=== PATIENT | male | born 1975 | race Caucasian/White ===

== ENCOUNTER 2018-08-09 14:29 | Inpatient (IN) | payer BC ==
[~2018-08-09] VITALS: Ht 182.9 cm; Wt 108.4 kg
[2018-08-09] MEDS ORDERED: IV NORMAL SALINE 1000ML BAG 1,000 ML IV ONE (16:00)
[2018-08-09 16:14] LABS: BASO % 0 % (0-3); EOS % 1 % (0-3); HEMATOCRIT 50.7 % (39.0-53.0); HEMOGLOBIN 17.4 g/dL (13.0-17.5); LYMPH # 1.5 x10^3/uL (1.0-4.8); LYMPH % 26 % (24-48); MEAN CORPUSCULAR HEMOGLOBIN 30 pg (25-35); MEAN CORPUSCULAR HGB CONC 34 g/dL (31-37); MEAN CORPUSCULAR VOLUME 88 fL (79-100); MONO # 0.3 x10^3/uL (0.0-1.1); MONO % 6 % (0-9); NEUT # 3.9 x10^3uL (1.8-7.7); NEUT % 68 % (31-73); PLATELET COUNT 252 x10^3/uL (140-400); RED BLOOD COUNT 5.79 x10^6/uL (4.30-5.70); RED CELL DISTRIBUTION WIDTH 13.8 % (11.5-14.5); WHITE BLOOD COUNT 5.8 x10^3/uL (4.0-11.0)
--- NOTE | 2018-08-09 16:16 | PHYS DOC ---
Past Medical History Past Medical History: Hypertension Past Surgical History: No Surgical History Additional Information: Nonsmoker Alcohol Use: None Drug Use: None Adult General Chief Complaint Chief Complaint: BLURRED/DOUBLE VISION HPI HPI Patient is a 43 year old male who presents with acute onset diplopia which started at approximately [id number]. Patient states he was awake and driving for about an hour this morning but when he got out of his car he noticed double vision that came on immediately. He states that visual acuity is unaffected in either eye and there is no eye pain, swelling or redness. He feels that something is wrong with his right eye and states that he "cannot move it to look left past midline". Patient denies headache, photophobia, neck pain, vertigo, weakness, dizziness, paresthesias, chest pain or shortness of breath. Denies trauma or eye pain. Reports he does wear contacts. Review of Systems Review of Systems Constitutional: Denies fever or chills [] Eyes: Reports diplopia and inability to adduct right eye. Denies change in visual acuity, redness, or eye pain [] HENT: Denies nasal congestion or sore throat [] Respiratory: Denies cough or shortness of breath [] Cardiovascular: Denies chest pain or palpitations [] GI: Denies abdominal pain, nausea, vomiting, or diarrhea [] Integument: Denies rash or skin lesions [] Neurologic: Denies headache, focal weakness or sensory changes [] Endocrine: Denies temperature intolerance or skin changes. [] Complete review of systems found to be within normal limits, except as documented in this note. Current Medications Current Medications Current Medications Medications (Trade) Dose Ordered Sig/Sp Start Time Stop Time Status Last Admin Dose Admin Fluorescein Sodium (Ful-Taylor) 1 strip 1X ONCE 08/09/18 16:30 08/09/18 16:31 DC 08/09/18 18:13 1 STRIP Info (CONTRAST GIVEN -- Rx MONITORING) 1 each PRN DAILY PRN 08/09/18 16:45 08/11/18 16:44 Iohexol (Omnipaque 350 Mg/ml) 75 ml 1X ONCE 08/09/18 17:00 08/09/18 17:01 DC 08/09/18 16:54 75 ML Sodium Chloride 1,000 ml @ 1,000 mls/hr 1X ONCE 08/09/18 16:00 08/09/18 16:59 DC 08/09/18 16:08 1,000 MLS/HR Tetracaine HCl (Tetracaine) 1 drop 1X ONCE 08/09/18 16:30 08/09/18 16:31 DC Allergies Allergies Allergies Coded Allergies Type Severity Reaction Last Updated Verified codeine Allergy Intermediate 08/09/18 Yes Physical Exam Physical Exam Constitutional: Well developed, well nourished, no acute distress, non-toxic appearance. [] HENT: Normocephalic, atraumatic, bilateral external ears normal, oropharynx moist, no oral exudates, tympanic membranes visualized b/l with good cones of light and no effusion. [] Eyes: PERRLA, Right eye does not adduct past midline. Red reflexes present b/l. No conjunctivitis or uveitis. No erythema surrounding eyelids. No pain on extraocular movements. IOP 17, 18; No fluorescein uptake, no corneal abrasion Neck: Normal range of motion, no tenderness, supple, no stridor. [] Cardiovascular:Heart rate regular rhythm, no murmur [] Lungs & Thorax: Bilateral breath sounds clear to auscultation [] Abdomen: Soft and nontender [] Skin: Warm, dry, no erythema, no rash. [] Extremities: Radial pulses +2 b/l. UE Strength +5 b/l [] Neurologic: Alert and oriented X 3, normal extremity motor function, normal sensory function. Cranial nerve examination revealed no focal deficit aside from inability to adduct right eye. [] Psychologic: Affect normal, judgement normal, mood normal. [] Current Patient Data Vital Signs Vital Signs Date Time Temp Pulse Resp B/P (MAP) Pulse Ox O2 Delivery O2 Flow Rate FiO2 08/09/18 14:36 97.6 62 18 157/95 (115) 100 Room Air 97.6 Lab Values Laboratory Tests Test 08/09/18 16:00 White Blood Count 5.8 x10^3/uL (4.0-11.0) Red Blood Count 5.79 x10^6/uL (4.30-5.70) H Hemoglobin 17.4 g/dL (13.0-17.5) Hematocrit 50.7 % (39.0-53.0) Mean Corpuscular Volume 88 fL (79-100) Mean Corpuscular Hemoglobin 30 pg (25-35) Mean Corpuscular Hemoglobin Concent 34 g/dL (31-37) Red Cell Distribution Width 13.8 % (11.5-14.5) Platelet Count 252 x10^3/uL (140-400) Neutrophils (%) (Auto) 68 % (31-73) Lymphocytes (%) (Auto) 26 % (24-48) Monocytes (%) (Auto) 6 % (0-9) Eosinophils (%) (Auto) 1 % (0-3) Basophils (%) (Auto) 0 % (0-3) Neutrophils # (Auto) 3.9 x10^3uL (1.8-7.7) Lymphocytes # (Auto) 1.5 x10^3/uL (1.0-4.8) Monocytes # (Auto) 0.3 x10^3/uL (0.0-1.1) Eosinophils # (Auto) 0.0 x10^3/uL (0.0-0.7) Basophils # (Auto) 0.0 x10^3/uL (0.0-0.2) Erythrocyte Sedimentation Rate 2 (0-15) Sodium Level 142 mmol/L (136-145) Potassium Level 3.9 mmol/L (3.5-5.1) Chloride Level 103 mmol/L (98-107) Carbon Dioxide Level 30 mmol/L (21-32) Anion Gap 9 (6-14) Blood Urea Nitrogen 14 mg/dL (8-26) Creatinine 1.0 mg/dL (0.7-1.3) Estimated GFR (Cockcroft-Gault) 81.2 BUN/Creatinine Ratio 14 (6-20) Glucose Level 93 mg/dL (70-99) Calcium Level 9.5 mg/dL (8.5-10.1) Magnesium Level 2.3 mg/dL (1.8-2.4) Total Bilirubin 0.9 mg/dL (0.2-1.0) Aspartate Amino Transferase (AST) 24 U/L (15-37) Alanine Aminotransferase (ALT) 54 U/L (16-63) Alkaline Phosphatase 74 U/L (46-116) Creatine Kinase 94 U/L (39-308) Creatine Kinase MB (Mass) 1.1 ng/mL (0.0-3.6) Creatine Kinase MB Relative Index 1.2 % (0-4) Troponin I Quantitative < 0.017 ng/mL (0.000-0.055) C-Reactive Protein, Quantitative 1.5 mg/L (0-3.3) Total Protein 7.4 g/dL (6.4-8.2) Albumin 4.2 g/dL (3.4-5.0) Albumin/Globulin Ratio 1.3 (1.0-1.7) Thyroid Stimulating Hormone (TSH) 0.719 uIU/mL (0.358-3.74) Free Thyroxine 1.19 ng/dL (0.76-1.46) Free Triiodothyronine (T3) pg/mL 3.51 pg/mL (2.18-3.98) Laboratory Tests 08/09/18 16:00 Laboratory Tests 08/09/18 16:00 EKG EKG @1615: Sinus arrhythmia with rate variable between 85 and 62. Normal axis. No Q waves. T wave inversion in V3-V6 and I and aVL. No ST segment elevation or depression.[] Radiology/Procedures Radiology/Procedures PROCEDURE: CT ANGIOGRAPHY HEAD AND NECK CT ANGIOGRAPHY HEAD AND NECK Indication: Right diplopia. Exposure: One or more of the following individualized dose reduction techniques were utilized for this examination: 1. Automated exposure control 2. Adjustment of the mA and/or kV according to patient size 3. Use of iterative reconstruction technique. TECHNIQUE: Standard imaging obtained after intravenous contrast. MIP reconstructions were obtained. Urgent interpretation and reporting was requested to evaluate for large vessel occlusion. Comparison: None are available. Contrast: Intravenous contrast is given. Neck: The carotid arteries are grossly patent bilaterally. Vertebral arteries are patent in the neck bilaterally. Head: Intracranial carotid arteries are grossly patent. Intracranial perfusion appears grossly symmetric. Anterior cerebral arteries are patent. Middle cerebral arteries are patent. Vertebrobasilar arteries are patent. Posterior cerebral arteries are patent. Posterior communicating arteries appear patent bilaterally. No large aneurysm is suggested. Nonvascular findings: Limited due to technique which was protocoled towards arterial evaluation. No obvious midline shift in the brain. Lung apices grossly clear. IMPRESSION: No evidence of large vessel occlusion. Electronically signed by: Zbigniew Cain MD (08/09/2018 5:25 PM) [facility] [] Course & Med Decision Making Course & Med Decision Making Pertinent Labs and Imaging studies reviewed. (See chart for details) Patient is a 43 year old male who presents with acute onset horizontal diplopia and ophthalmoplegia that began immediately at nearly 0800/30 this morning. Patient has no other complaints and his eye has never been painful or swollen th roughout this event. Visual acuity has been spared in both eyes. He is relatively healthy with his only notable past medical history being HTN treated with lisinopril and hydrochlorothiazide. NIHSS 1 due to partial gaze palsy of right eye. CTA of head and neck showed no evidence of large vessel occlusion. Intraocular pressures normal. CBC, CMP, Troponin and CRP unremarkable. Although he was unable to adduct the right eye past midline upon initial evaluation, he experienced moderate improvement while in the ED and regained some motion past midline in the right eye although his diplopia persisted. Aspirin given in ED for cerebrovascular protection. Given negative ESR/CRP and lack of additional symptoms, giant cell temporal arteritis less likely. Acute angle glaucoma unlikely due to lack of eye pain and normal IOP. Symptomatology leaves internuclear ophthalmoplegia as a possibility however symptoms have been immediate with recent improvement and patient has minimal risk factors for cerebrovascular disease. Discussed with patient the benefit of further evaluation as inpatient admission and patient is agreeable. Will admit to Dr. Bravo. Discussed case with Dr. Franco (neurology) who requests thyroid studies to be added. Patient requiring admission for further evaluation and treatment. Discussed with Dr. Bravo (PCP) who is in agreement with admit. Discussed findings and plan with patient, who acknowledges understanding and agreement. Dragon Disclaimer Dragon Disclaimer This electronic medical record was generated, in whole or in part, using a voice recognition dictation system. Departure Departure Impression: Primary Impression: Diplopia Additional Impression: Ophthalmoplegia Disposition: ADMITTED INPATIENT Admitting Physician: Austyn Bravo Condition: STABLE Referrals: AUSTYN BRAVO MD (PCP) NIHSS Stroke Scale NIH Stroke Scale: NIH Stroke Scale Response (Comments) Value Level of Consciousness: 0 Alert/Responsive 0 LOC Questions: 0 Answers both correctly 0 LOC Commands: 0 Performs both tasks 0 Best Gaze: 1 Partial gaze palsy 1 Visual: 0 No visual loss 0 Facial Palsy: 0 Normal, symmetrical 0 Motor - Left Arm 0 No drift 0 Motor - Right Arm 0 No drift 0 Motor - Left Leg 0 No drift 0 Motor: Right Leg 0 No drift 0 Limb Ataxia: 0 Absent 0 Sensory: 0 No loss 0 Best Language: 0 Normal 0 Dysathria: 0 Normal 0 Extinction and Inattention: 0 Normal 0 Total 1 Critical Care Time Critical care time was [30] minutes exclusive of procedures. Problem Qualifiers ZBIGNIEW WAGONER DO August 09, 2018 16:16
[2018-08-09 16:29] LABS: CALCIUM 9.5 mg/dL (8.5-10.1); GFR 81.2; POTASSIUM 3.9 mmol/L (3.5-5.1)
[2018-08-09] MEDS: TETRACAINE 0.5% OPHTH SOLUTION 4ML BOTTLE. OD ONE (16:30)
[2018-08-09] MEDS ORDERED: FLUORESCEIN OPHTH TEST STRIP. OD ONE (16:30)
[2018-08-09 16:39] LABS: ALBUMIN 4.2 g/dL (3.4-5.0); ALBUMIN/GLOBULIN RATIO 1.3 (1.0-1.7); C-REACTIVE PROTEIN 1.5 mg/L (0-3.3); MAGNESIUM 2.3 mg/dL (1.8-2.4); TOTAL BILIRUBIN 0.9 mg/dL (0.2-1.0); TOTAL PROTEIN 7.4 g/dL (6.4-8.2)
[2018-08-09] MEDS ORDERED: CONTRAST GIVEN. MC PRN (16:45)
[2018-08-09] MEDS ORDERED: IOHEXOL 350 MG/ML 100 ML VIAL. IV ONE (17:00)
--- NOTE | 2018-08-09 17:28 | RAD ---
CT ANGIOGRAPHY HEAD AND NECK Indication: Right diplopia. Exposure: One or more of the following individualized dose reduction techniques were utilized for this examination: 1. Automated exposure control 2. Adjustment of the mA and/or kV according to patient size 3. Use of iterative reconstruction technique. TECHNIQUE: Standard imaging obtained after intravenous contrast. MIP reconstructions were obtained. Urgent interpretation and reporting was requested to evaluate for large vessel occlusion. Comparison: None are available. Contrast: Intravenous contrast is given. Neck: The carotid arteries are grossly patent bilaterally. Vertebral arteries are patent in the neck bilaterally. Head: Intracranial carotid arteries are grossly patent. Intracranial perfusion appears grossly symmetric. Anterior cerebral arteries are patent. Middle cerebral arteries are patent. Vertebrobasilar arteries are patent. Posterior cerebral arteries are patent. Posterior communicating arteries appear patent bilaterally. No large aneurysm is suggested. Nonvascular findings: Limited due to technique which was protocoled towards arterial evaluation. No obvious midline shift in the brain. Lung apices grossly clear. IMPRESSION: No evidence of large vessel occlusion. Electronically signed by: Zbigniew Cain MD (08/09/2018 5:25 PM) [id number]
[2018-08-09] MEDS ORDERED: ASPIRIN 325 MG TABLET PO ONE (18:15)
[2018-08-09 18:59] LABS: FREE T4 1.19 ng/dL (0.76-1.46); THYROID STIM HORMONE (TSH) 0.719 uIU/mL (0.358-3.74)
[2018-08-09 19:59] VITALS: BP 124/64
[2018-08-09] MEDS ORDERED: LISI1TAB5 PO (20:25)
[2018-08-09 23:17] VITALS: BP 104/56
[2018-08-10 03:53] VITALS: BP 112/66
--- NOTE | 2018-08-10 06:27 | EKG ---
[facility] [address] [place] [address] Test Date: 2018-08-09 Test Time: 16:15:56 Pat Name: OSMANY DIAZ Department: Room: [facility] Gender: M [employer]: : 1975 Requested By: DENISE WAGONER Order Number: [id number] Reading MD: Clarke Dawson MD Measurements Intervals [place] Rate: 67 P: 34 CT: 144 QRS: 21 QRSD: 90 T: 83 QT: 430 QTc: 457 Interpretive Statements SINUS ARRHYTHMIA ANTEROLATERAL TWI Electronically Signed On 09-03-2018 15:05:51 CDT by Clarke Dawson MD
[2018-08-10 07:00] VITALS: BP 119/71
--- NOTE | 2018-08-10 08:10 | PDOC ---
Provider Note Provider Note [id number] AUSTYN BRAVO MD August 10, 2018 08:10
--- NOTE | 2018-08-10 08:24 | HP ---
ADMIT DATE: 08/09/2018 CHIEF COMPLAINT: Double vision. HISTORY OF PRESENT ILLNESS: A 43-year-old white male, normally healthy, has only mild hypertension and takes one medication. He was doing fine until abrupt onset of diplopia on the day of admission. There has been no injury, headache or any other specific symptoms that he can see well out of each eye individually. CTA in the ER showed no sign of aneurysm or vascular lesion and he was admitted and seems to be better at this point already. He sees more double images when he looks to his left than when he looks to his right. PAST HISTORY: MEDICATIONS: He takes only one medication. ALLERGIES: CODEINE. PAST MEDICAL HISTORY: No other serious medical problems. No history of diabetes. SOCIAL HISTORY: Nonsmoker, nondrinker, physically active, , employed. FAMILY HISTORY: Unremarkable. REVIEW OF SYSTEMS: No other complaints. OBJECTIVE: ENT: All within normal limits. NECK: No masses, nodes or bruits. LUNGS: Clear. CARDIOVASCULAR: Regular rate. No murmur. ABDOMEN: Benign. EXTREMITIES: Unremarkable. Good pedal pulses. NEUROLOGIC: Extraocular muscles seem to move well both medially, laterally up and down and I could see no clear disconjugate movement. Pupils are reactive. Vision out of each eye individually seems normal. The rest of the neurologic exam was unremarkable. In the ER, he did have a bit of a medial/esotropic movement to the right eye, the patient says it is better now. 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 Etiology is not clear as the patient is not a diabetic and has no other signs of multiple sclerosis or any other neurologic process and no sign of any aneurysms. PLAN: MRI with contrast. Neurologic consultation. AUSTYN BRAVO MD DR: LOVE/sharonda JOB#: [id number] / [id number]
[2018-08-10] MEDS ORDERED: hydroCHLOROthiazide 25 MG TABLET PO SCH (09:00)
[2018-08-10] MEDS ORDERED: LISINOPRIL 20 MG TABLET PO SCH (09:00)
[2018-08-10 11:00] VITALS: BP 144/63
--- NOTE | 2018-08-10 12:17 | NUR ---
Patient refused lisinopril and HCTZ this morning, he took his own meds. He was educated that we have to give the hospital's own supply while he's admitted,; verbalized understanding.
[2018-08-10 13:16] LABS: BARBITURATES NEG (NEG); BENZODIAZEPINES NEG (NEG); CANNABINOIDS NEG (NEG); COCAINE NEG (NEG); METHADONE NEG (NEG); OPIATES NEG (NEG); PHENCYCLIDINE NEG (NEG)
[2018-08-10 13:17] LABS: AMPHETAMINE/METHAMPHETAMINE NEG (NEG)
[2018-08-10 14:33] VITALS: BP 134/84
[2018-08-10] MEDS ORDERED: GADOTERATE 7.5 MMOL/15ML VIAL. IVP ONE (15:00)
--- NOTE | 2018-08-10 15:20 | NUR ---
SW following pt for anticipated dc needs. Chart reviewed. Pt lives at home with family. PT/OT pending. No dc recommendation or SW needs noted at this time. Will continue to follow.
--- NOTE | 2018-08-10 15:21 | RAD ---
MRI Brain with and without contrast History: Cranial neuropathy, spinal cord lesion, vertigo Technique: Multiplanar, multi sequential pre and postcontrast MR imaging was performed of the brain. Comparison: None Findings: There is some artifact concentrated on the right anteriorly. There is no evidence of recent infarct or cytotoxic edema. The ventricles, sulci, and cisterns are within normal limits in size and configuration. There is no significant midline shift, intraaxial mass effect, or focal abnormal extra-axial fluid collection. There is no significant signal abnormality of the brain parenchyma. There is no nodular parenchymal or leptomeningeal enhancement. There is preservation of the major intracranial flow-voids at the skull base. The cerebellar tonsils are normal in location. There is no significant abnormality of the pineal gland or pituitary gland. There is very minimal patchy ethmoid air cell mucosal thickening, also mild right greater than left frontal sinus mucosal thickening. The mastoid air cells are aerated. There is preserved marrow signal of the clivus. Impression: 1. There is no significant intracranial abnormality. Electronically signed by: Gregg Link MD (08/10/2018 3:18 PM) [facility]
--- NOTE | 2018-08-10 17:35 | PDOC2 ---
NEUROLOGY CONSULT Date of Admission Date of Admission DATE: 08/10/18 TIME: 17:24 Reason for Consult Reason for Consult: IMPRESSION: Diplopia. HTN. Obesity. No evidence of acute CVA or brain tumor found this time. RECOMMENDATIONS/PLAN: Treat medical diseases. See ophthalmology. Weight reduction. FU with PCP. Suggest lipid panel, can be done as outpatient base. HISTORY OF THE PRESENT ILLNESS: This is a 43-year-old male patient with history of HTN developed symptoms of diplopia decreased see double aside from each other since 08/09/18. His symptoms largely improved on 08/10/18. No symptoms of headaches, decreased vision, ataxia, focalized numbness or weakness. PAST MEDICAL HISTORY: HTN. PAST SURGERY HISTORY: No major surgery recently. ALLERGY: Codeine. MEDICATIONS: Refer to [facility] FAMILY HISTORY: Non contributory. SOCIAL HISTORY: Lives at home. lone. Denies smoking, drinking, and illicit drug use/abuse. REVIEW OF SYSTEMS: Constitutional: No malnutrition, weight loss, cachexia. Head: No traumatic brain or head injury. Skin: No edema, or rash. Ear: No infection. Eyes: No vision loss or color blindness. Nose: No bleeding or purulent discharges. Hearing: No hearing decrease. Neck: No injury. Cardiac: HTN. Pulmonary: No COPD. GI: No GI ulcer, GI bleeding. Urinary/genital: No dysuria, incontinence, urinary retention. Endocrinologic: Obesity. Skeletomuscular: No muscular atrophy, deformity. Neurological: see HP. Psychiatric: Denies drug use/abuse. Otherwise, not [id number] review of systems. PHYSICAL EXAMINATION: General appearance is in no acute distress. HEENT: Normocephalic and nontraumatic. Eyes, nose, ears, and throat are unremarkable. Neck is supple. No lymphadenopathy. No bruits are heard over the carotid artery. No crepitus. Cardiovascular: S1, S2, regular rate and rhythm. Pulmonary: Clear to auscultation bilaterally. Abdomen: Bowel sounds are positive. Abdomen is soft, nontender, and nondistended. Extremities: No rash, lesions, or edema. No restriction of range of motion NEUROLOGICAL EXAMINATION: Alert Oriented to time, place and person. PERRL. EOMI. CN: no focal findings. Muscle tone: within normal. Muscle strength: 5 DTR: 2 Plantar reflex: Flexor response bilaterally Gait: not examined in bed. Sensory exam: no abnormal findings. No cerebellar signs elicited. F-T-N test accurate. Current Medications Current Medications Current Medications Tetracaine HCl (Tetracaine) 1 drop 1X ONCE OD ; Start 08/09/18 at 16:30; Stop 08/09/18 at 16:31; Status DC Fluorescein Sodium (Ful-Taylor) 1 strip 1X ONCE OD Last administered on 08/09/18at 18:13; Start 08/09/18 at 16:30; Stop 08/09/18 at 16:31; Status DC Sodium Chloride 1,000 ml @ 1,000 mls/hr 1X ONCE IV Last administered on 08/09/18at 16:08; Start 08/09/18 at 16:00; Stop 08/09/18 at 16:59; Status DC Iohexol (Omnipaque 350 Mg/ml) 75 ml 1X ONCE IV Last administered on 08/09/18at 16:54; Start 08/09/18 at 17:00; Stop 08/09/18 at 17:01; Status DC Info (CONTRAST GIVEN -- Rx MONITORING) 1 each PRN DAILY PRN MC SEE COMMENTS; Start 08/09/18 at 16:45; Stop 08/11/18 at 16:44 Aspirin (Missy Aspirin) 325 mg 1X ONCE PO Last administered on 08/09/18at 18:13; Start 08/09/18 at 18:15; Stop 08/09/18 at 18:16; Status DC Lisinopril (Prinivil) 40 mg DAILY PO ; Start 08/10/18 at 09:00 Hydrochlorothiazide (Hydrodiuril) 25 mg DAILY PO ; Start 08/10/18 at 09:00 Gadoterate Meglumine (Dotarem) 21.6 ml 1X ONCE IVP Last administered on at 15:01; Start 08/10/18 at 15:00; Stop 08/10/18 at 15:01; Status DC Active Scripts Active Reported Lisinopril-Hctz 20-12.5 Mg Tab (Lisinopril/Hydrochlorothiazide) 1 Each Tablet 2 Tab PO DAILY Allergies Allergies: Allergies Coded Allergies Type Severity Reaction Last Updated Verified codeine Allergy Intermediate 08/09/18 Yes ROS Review of System The patient denies any associated fevers, chills, headache, ear pain, rhinorrhea, sore throat, stiff neck, productive cough, chest pain, shortness of breath, back or flank pain, abdominal pain, nausea, vomiting, diarrhea, constipation, dysuria, rash, numbness, weakness, tingling, incontinence, difficulty ambulating, or diaphoresis. Physical Exam Physical Exam General: Well developed, well nourished, no acute distress, well appearing HEENT: Pupils equally round and reactive to light, EOMI, no discharge, normal conjunctiva Neck: Supple, no nuchal rigidity, no JVD, trachea midline, no tenderness Cardiac: RRR, no murmurs, no gallops, no rubs Chest/Lungs: CTAB, no wheeze, no rhonchi, no crackles Abdomen: soft, non-distended, no guarding, no peritoneal signs, non-tender Back: No tenderness Extremities: no edema, pulses intact, non-tender,capillary refill <3 sec bilateral upper and lower extremities, Neuro: Alert and oriented x 4, no focal deficits, normal speech Vitals Vitals: Vital Signs Date Time Temp Pulse Resp B/P (MAP) Pulse Ox O2 Delivery O2 Flow Rate FiO2 08/10/18 14:33 98.0 64 18 134/84 (101) 99 Room Air 98.0 Labs Labs Laboratory Tests Test 08/09/18 16:00 08/09/18 21:00 08/10/18 00:35 08/10/18 12:59 White Blood Count 5.8 x10^3/uL (4.0-11.0) Red Blood Count 5.79 x10^6/uL (4.30-5.70) Hemoglobin 17.4 g/dL (13.0-17.5) Hematocrit 50.7 % (39.0-53.0) Mean Corpuscular Volume 88 fL (79-100) Mean Corpuscular Hemoglobin 30 pg (25-35) Mean Corpuscular Hemoglobin Concent 34 g/dL (31-37) Red Cell Distribution Width 13.8 % (11.5-14.5) Platelet Count 252 x10^3/uL (140-400) Neutrophils (%) (Auto) 68 % (31-73) Lymphocytes (%) (Auto) 26 % (24-48) Monocytes (%) (Auto) 6 % (0-9) Eosinophils (%) (Auto) 1 % (0-3) Basophils (%) (Auto) 0 % (0-3) Neutrophils # (Auto) 3.9 x10^3uL (1.8-7.7) Lymphocytes # (Auto) 1.5 x10^3/uL (1.0-4.8) Monocytes # (Auto) 0.3 x10^3/uL (0.0-1.1) Eosinophils # (Auto) 0.0 x10^3/uL (0.0-0.7) Basophils # (Auto) 0.0 x10^3/uL (0.0-0.2) Erythrocyte Sedimentation Rate 2 (0-15) Sodium Level 142 mmol/L (136-145) Potassium Level 3.9 mmol/L (3.5-5.1) Chloride Level 103 mmol/L (98-107) Carbon Dioxide Level 30 mmol/L (21-32) Anion Gap 9 (6-14) Blood Urea Nitrogen 14 mg/dL (8-26) Creatinine 1.0 mg/dL (0.7-1.3) Estimated GFR (Cockcroft-Gault) 81.2 BUN/Creatinine Ratio 14 (6-20) Glucose Level 93 mg/dL (70-99) Calcium Level 9.5 mg/dL (8.5-10.1) Magnesium Level 2.3 mg/dL (1.8-2.4) Total Bilirubin 0.9 mg/dL (0.2-1.0) Aspartate Amino Transf (AST/SGOT) 24 U/L (15-37) Alanine Aminotransferase (ALT/SGPT) 54 U/L (16-63) Alkaline Phosphatase 74 U/L (46-116) Creatine Kinase 94 U/L (39-308) Creatine Kinase MB (Mass) 1.1 ng/mL (0.0-3.6) Creatine Kinase MB Relative Index 1.2 % (0-4) Troponin I Quantitative < 0.017 ng/mL (0.000-0.055) < 0.017 ng/mL (0.000-0.055) < 0.017 ng/mL (0.000-0.055) C-Reactive Protein, Quantitative 1.5 mg/L (0-3.3) Total Protein 7.4 g/dL (6.4-8.2) Albumin 4.2 g/dL (3.4-5.0) Albumin/Globulin Ratio 1.3 (1.0-1.7) Thyroid Stimulating Hormone (TSH) 0.719 uIU/mL (0.358-3.74) Free Thyroxine 1.19 ng/dL (0.76-1.46) Free Triiodothyronine (T3) pg/mL 3.51 pg/mL (2.18-3.98) Urine Opiates Screen Neg (NEG) Urine Methadone Screen Neg (NEG) Urine Barbiturates Neg (NEG) Urine Phencyclidine Screen Neg (NEG) Urine Amphetamine/Methamphetamine Neg (NEG) Urine Benzodiazepines Screen Neg (NEG) Urine Cocaine Screen Neg (NEG) Urine Cannabinoids Screen Neg (NEG) Urine Ethyl Alcohol Neg (NEG) Laboratory Tests Test 08/09/18 21:00 08/10/18 00:35 08/10/18 12:59 Troponin I Quantitative < 0.017 ng/mL (0.000-0.055) < 0.017 ng/mL (0.000-0.055) Urine Opiates Screen Neg (NEG) Urine Methadone Screen Neg (NEG) Urine Barbiturates Neg (NEG) Urine Phencyclidine Screen Neg (NEG) Urine Amphetamine/Methamphetamine Neg (NEG) Urine Benzodiazepines Screen Neg (NEG) Urine Cocaine Screen Neg (NEG) Urine Cannabinoids Screen Neg (NEG) Urine Ethyl Alcohol Neg (NEG) ÁLVARO ALVARES MD August 10, 2018 17:35
--- NOTE | 2018-08-10 18:04 | NUR ---
Pt discharged to home with . Discharge instructions reviewed. Verbalized understanding.
--- NOTE | 2018-08-10 22:18 | DS ---
DATE OF DISCHARGE: 08/10/2018 HOSPITAL SUMMARY: A 43-year-old white male came in with acute onset of double vision without etiology clear. He appeared to have a medial drift to his right eye in the ER, which seemed to resolve after a period of time in the hospital. CT angiogram of the head and neck was normal as reportedly was the MRI with contrast of the brain. All chemistry studies were within normal limits as well. He was seen by the neurologist and after the MRI was done, he was comfortable to leave and be followed as an outpatient as his diplopia had much improved. The right eye appeared to be the involved eye and etiology is certainly not clear of this. FINAL DIAGNOSIS: Diplopia, idiopathic. OPERATIONS, PROCEDURES, COMPLICATIONS: None. CONSULTATIONS: Dr. Brock. DISPOSITION: No meds given. Office followup with me in 1 week, Dr. Brock as scheduled. PROGNOSIS: Good. AUSTYN BRAVO MD DR: LOVE/nts JOB#: [id number] / [id number]
== END 2018-08-10 18:00 | disposition home or self-care (01) | DRG 123 ==
LOC: ER 14:29 → 6 SOUTH 18:00
PROVIDERS: ADMIT Family Medicine; ATTEND Family Medicine
DX: H53.2 Diplopia (principal); E66.9 Obesity, unspecified; I10 Essential (primary) hypertension; Z68.32 Body mass index [BMI] 32.0-32.9, adult; Z88.5 Allergy status to narcotic agent; Z79.899 Other long term (current) drug therapy
CPT/HCPCS: 36415; 70496; 70498; 70553; 80053; 80307; 82553; 83735; 84439; 84443; 84481; 84484; 85025; 85651; 86140; 93005; 96360; A9575; J7030; Q9967; 99291-25

== ENCOUNTER → 2020-02-02 | Outpatient (CLI) | payer BC ==
[~2020-02-02] MED LIST: LISI1TAB37 PO
--- NOTE | 2020-02-02 11:36 | CARD ---
MR#: [id number] Date of Study: 02/02/2020 Ordering Physician: CLIF MISHRA, Referring Physician: CLIF MISHRA, Tech: Beatrice Yousif ROSEMARY APPROVED REPORT EXAM: Two-dimensional and M-mode echocardiogram with Doppler and color Doppler. Other Information Quality : Good INDICATION Exertional Dyspnea 2D DIMENSIONS RVDd2.6 (2.9-3.5cm)Left Atrium(2D)3.9 (1.6-4.0cm) IVSd1.3 (0.7-1.1cm)Aortic Root(2D)3.6 (2.0-3.7cm) LVDd4.8 (3.9-5.9cm)LVOT Diameter2.0 (1.8-2.4cm) PWd1.3 (0.7-1.1cm)LVDs2.3 (2.5-4.0cm) FS (%) 30.0 %SV89.2 ml LVEF(%)60.0 (>50%) Aortic Valve AoV Peak Joe.135.7cm/sAoV VTI25.1cm AO Peak GR.7.4mmHgLVOT Peak Joe.125.0cm/s AO Mean GR.4mmHgAVA (VMAX)3.02cm2 LIBORIO (VTI)3.30cm2 Mitral Valve MV E Uibcyitp52.0cm/sMV DECEL IQQJ369gr MV A Twwqwvdz64.6cm/sE/A Ratio1.5 Pulmonary Vein S1 Ahrdtxew81.0cm/sD2 Rzdluqgp80.5cm/s LEFT VENTRICLE The left ventricle is normal size. There is borderline concentric left ventricular hypertrophy. The l eft ventricular systolic function is normal and the ejection fraction is within normal range. The Eje ction Fraction is 55-60%. There is normal LV segmental wall motion. RIGHT VENTRICLE The right ventricle is normal size. The right ventricular systolic function is normal. ATRIA The left atrium size is normal. The right atrium size is normal. The interatrial septum is intact wit h no evidence for an atrial septal defect or patent foramen ovale as noted on 2-D or Doppler imaging. AORTIC VALVE The aortic valve is not well visualized but appears to be functioning normally by Doppler interrogati on. Doppler and Color Flow revealed no significant aortic regurgitation. There is no significant aort ic valvular stenosis. MITRAL VALVE The mitral valve is calcified but opens well. There is no evidence of mitral valve prolapse. There is no mitral valve stenosis. Doppler and Color-flow revealed trace mitral regurgitation. TRICUSPID VALVE The tricuspid valve is normal in structure and function. Doppler and Color Flow revealed no tricuspid valve regurgitation noted. There is no tricuspid valve stenosis. PULMONIC VALVE The pulmonic valve is not well visualized. Doppler and Color Flow revealed trace pulmonic valvular re gurgitation. There is no pulmonic valvular stenosis. GREAT VESSELS The aortic root is normal in size. The ascending aorta is normal in size. The IVC was not visualized. PERICARDIAL EFFUSION There is no evidence of significant pericardial effusion. Critical Notification Critical Value: No <Conclusion> The left ventricle is normal size. The left ventricular systolic function is normal and the ejection fraction is within normal range. The Ejection Fraction is 55-60%. There is borderline concentric left ventricular hypertrophy. There is no significant aortic valvular stenosis. Doppler and Color Flow revealed no significant aortic regurgitation. Doppler and Color-flow revealed trace mitral regurgitation. Doppler and Color Flow revealed no tricuspid valve regurgitation noted. Signed by : Clif Mishra MD Electronically Approved : 02/02/2020 11:35:33
== END ==
LOC: ECHO 07:43
PROVIDERS: ATTEND Internal Medicine Cardiovascular Disease
DX: I34.0 Nonrheumatic mitral (valve) insufficiency (principal); I51.7 Cardiomegaly
CPT/HCPCS: 93306

== ENCOUNTER → 2020-02-10 | Outpatient (CLI) | payer BC ==
[~2020-02-10] MED LIST changes: +CONTRAST GIVEN. MC PRN; +IOHEXOL 350 MG/ML 100 ML VIAL. IV ONE
--- NOTE | 2020-02-10 09:07 | RAD ---
EXAM: CT pulmonary angiogram with IV contrast INDICATION: Reason: DYSPNEA ON EXERTION / Spl. Instructions: INJ 100ML OMNI 350 / History: TECHNIQUE: Multi-detector row CT images were acquired from the thoracic inlet through the upper abdomen with the use of IV contrast. Sagittal and coronal images were acquired from the transaxial data. All CT scans performed at this facility utilize dose optimization techniques as appropriate to the exam, including the following: Automated exposure control and adjustment of the mA and/or KV according to patient size (this includes techniques or standardized protocols for targeted exams where dose is indication/reason for exam). IV CONTRAST: Administered COMPARISON: None FINDINGS: CARDIOVASCULAR: Unremarkable. No evidence of pulmonary emboli. 2 vessel aortic arch show no evidence of aortic dissection, flow-limiting stenosis or aneurysm. MEDIASTINUM & JOSÉ MIGUEL: No adenopathy or masses. LUNGS: No pulmonary infiltrate, nodule, or other focal abnormality. Scattered areas of increased lucency in the lung parenchyma are present, suggesting a mosaic attenuation pattern that could reflect underlying small airways disease. Lungs are mildly hypoventilatory. PLEURAL SPACE: No pleural effusions or pneumothorax. OSSEOUS & SOFT TISSUE: Unremarkable ABDOMEN: The visualized portions of the upper abdomen are unremarkable. IMPRESSION: Subtle mosaic pattern of attenuation to the lungs, suggesting possible air trapping from small airways disease. Otherwise unremarkable CT pulmonary angiogram showing no evidence of pulmonary emboli or other acute cardiopulmonary process. Electronically signed by: Dominga Ruby MD (02/10/2020 9:04 AM) [id number]
== END ==
LOC: CT 07:50
PROVIDERS: ATTEND Internal Medicine Cardiovascular Disease
DX: R06.00 Dyspnea, unspecified (principal); R06.89 Other abnormalities of breathing
CPT/HCPCS: 71275; Q9967